=== PATIENT | female | born 1985 | race Caucasian/White ===

== ENCOUNTER 2018-06-11 13:51 | Emergency (ER) | payer MEDICAID ==
[~2018-06-11] VITALS: Ht 157.5 cm; Wt 64.0 kg
[2018-06-11] MEDS ORDERED: SODIUM CHLORIDE 0.9% 1,000 ML IV ONE (14:27)
[2018-06-11] MEDS ORDERED: ONDANSETRON HCL 4MG/2ML VIAL IV STA (14:27)
[2018-06-11] MEDS ORDERED: LORAZEPAM 0.5MG TABLET PO ONE (14:30)
[2018-06-11 15:04] LABS: CLARITY URINE CLEAR (CLEAR); COLOR URINE YELLOW (YELLOW); KETONES URINE NEGATIVE (NEGATIVE); LEUKOCYTE ESTERASE URINE NEGATIVE (NEGATIVE); NITRITE URINE NEGATIVE (NEGATIVE); OCCULT BLOOD URINE TRACE (NEGATIVE); PH URINE 8.5 (4.5-8.0); PROTEIN URINE TRACE (NEGATIVE); SPECIFIC GRAVITY URINE 1.026 (1.005-1.030); UROBILINOGEN URINE 0.2 E.U./dL (0.2-1.0)
[2018-06-11 15:09] LABS: CHLORIDE 109 mEq/L (98-107)
[2018-06-11 15:17] LABS: HEMATOCRIT. 35.1 % (36.0-48.0); HEMOGLOBIN. 11.9 g/dL (12.0-16.0); MEAN CORPUSCULAR HEMOGLOBIN 29.3 pg (28.0-32.0); MEAN CORPUSCULAR VOLUME 86.5 fL (81.0-99.0); MEAN PLATELET VOLUME 9.7 fl (7.4-10.4); PLATELET 206 x1000/uL (130-400); RED BLOOD CELL COUNT 4.06 mill/uL (4.2-5.4); RED CELL DISTRIBUTION WIDTH 13.6 % (11.6-14.6)
[2018-06-11 16:36] LABS: PLATELET ESTIMATE NORMAL
[2018-06-11 18:05] VITALS: BP 104/62
== END 2018-06-11 18:06 | disposition home or self-care (01) ==
LOC: ER 13:51
DX: R55 Syncope and collapse (principal); Z98.890 Other specified postprocedural states
CPT/HCPCS: 36415; 80053; 81003; 81025; 85025; 93005; 96361; 96374; 99285; J2405; J7030; Z7610

== ENCOUNTER 2022-06-30 14:56 | Emergency (ER) | payer MEDICAID, OTHER ==
[~2022-06-30] VITALS: Ht 157.5 cm; Wt 59.0 kg
[2022-06-30 15:04] VITALS: BP 113/69
[2022-06-30] MEDS ORDERED: MAGNESIUM/ALUMINUM HYDROXIDE/SIMETHICONE 30ML UDC PO STA (16:46)
[2022-06-30] MEDS ORDERED: ONDANSETRON HCL 4MG/2ML INJ IV STA (16:46)
[2022-06-30] MEDS ORDERED: VISCOUS LIDOCAINE 2% 15 ML UDC PO STA (16:46)
[2022-06-30] MEDS ORDERED: SODIUM CHLORIDE 0.9% 1,000 ML IV ONE (17:00)
[2022-06-30 17:14] LABS: BASOPHILS % 0.2 % (0.0-2.0); EOSINOPHILS % 2.6 % (0.0-5.0); HEMOGLOBIN. 11.5 g/dL (12.0-16.0); LYMPHOCYTES % 7.3 % (20.0-50.0); MEAN CORPUSCULAR HEMOGLOBIN 26.6 pg (28.0-32.0); MEAN CORPUSCULAR VOLUME 81.2 fL (81.0-99.0); MEAN PLATELET VOLUME 8.8 fl (7.4-10.4); MONOCYTES % 3.3 % (2.0-8.0); NEUTROPHILS % 86.6 % (40.0-76.0); PLATELET 281 x1000/uL (130-400); RED BLOOD CELL COUNT 4.31 mill/uL (4.2-5.4); RED CELL DISTRIBUTION WIDTH 15.2 % (11.6-14.6)
[2022-06-30 17:29] LABS: CHLORIDE 105 mEq/L (98-107)
[2022-06-30 17:35] LABS: HCG SCREEN NEGATIVE
[2022-06-30 17:38] LABS: ETHANOL BLOOD < 10 mg/dL
[2022-06-30 17:47] LABS: INR 1.1; PROTHROMBIN TIME 11.5 sec (9.6-11.0)
[2022-06-30 18:14] LABS: CLARITY URINE CLEAR (CLEAR); COLOR URINE DARK YELLOW (YELLOW); KETONES URINE 3+ (NEGATIVE); LEUKOCYTE ESTERASE URINE NEGATIVE (NEGATIVE); NITRITE URINE NEGATIVE (NEGATIVE); OCCULT BLOOD URINE NEGATIVE (NEGATIVE); PH URINE 6.5 (4.5-8.0); PROTEIN URINE NEGATIVE (NEGATIVE); SPECIFIC GRAVITY URINE 1.026 (1.005-1.030)
[2022-06-30 18:25] LABS: *AMPHETAMINES SCREEN URINE NEGATIVE (NEGATIVE); *BARBITURATES SCREEN URINE NEGATIVE (NEGATIVE); *BENZODIAZEPINES SCREEN URINE NEGATIVE (NEGATIVE); *COCAINE SCREEN URINE NEGATIVE (NEGATIVE); CANNABINOID URINE SCREEN NEGATIVE (NEGATIVE); METHADONE URINE SCREEN NEGATIVE (NEGATIVE); OPIATES URINE SCREEN NEGATIVE (NEGATIVE); PHENCYCLIDINE URINE SCREEN NEGATIVE (NEGATIVE)
[2022-06-30] MEDS ORDERED: PROT40 MT (19:04)
[2022-06-30] MEDS ORDERED: ACET-2708 MT (19:04)
[2022-06-30] MEDS ORDERED: ONDA4TAB50 MT (19:04)
== END 2022-06-30 19:39 | disposition home or self-care (01) ==
LOC: ER 14:56
DX: R19.7 Diarrhea, unspecified (principal); R10.32 Left lower quadrant pain; E86.0 Dehydration; R11.2 Nausea with vomiting, unspecified; D72.829 Elevated white blood cell count, unspecified
CPT/HCPCS: 36415; 76700; 80053; 80305; 80320; 81003; 83690; 84703; 85025; 85610; 93005; 96361; 96374; 99285; J2405; J7030; G0480

== ENCOUNTER 2023-07-29 18:57 | Emergency (ER) | payer MEDICAID, OTHER ==
[~2023-07-29] VITALS: Ht 154.9 cm; Wt 66.0 kg
[~2023-07-29 18:57] MED LIST: ACET-2708 MT; ONDA4TAB50 MT; PROT40 MT
[2023-07-29 19:24] LABS: BASOPHILS % 0.4 % (0.0-2.0); EOSINOPHILS % 13.4 % (0.0-5.0); HEMATOCRIT. 34.1 % (36.0-48.0); HEMOGLOBIN. 11.3 g/dL (12.0-16.0); LYMPHOCYTES % 13.5 % (20.0-50.0); MEAN CORPUSCULAR HGB CONC 33.1 g/dL (31.0-37.0); MEAN CORPUSCULAR VOLUME 81.6 fL (81.0-99.0); MONOCYTES % 4.5 % (2.0-8.0); NEUTROPHILS % 68.2 % (40.0-76.0); PLATELET 247 x1000/uL (130-400); RED BLOOD CELL COUNT 4.18 mill/uL (4.2-5.4); RED CELL DISTRIBUTION WIDTH 14.6 % (11.6-14.6); WHITE BLOOD COUNT 11.8 x1000/uL (4.5-11.0)
[2023-07-29 19:34] VITALS: O2SAT 98
[2023-07-29 19:35] LABS: CHLORIDE 108 mEq/L (98-107); INDEX HEMOLYSI 1 (1-3); INDEX ICTERIC 1 (1-4); INDEX LIPEMIC 1 (1-3); POTASSIUM 3.5 mEq/L (3.5-5.1); SODIUM 135 mEq/L (136-145)
[2023-07-29 19:42] LABS: ALANINE AMINOTRANSFERASE 15 IU/L (13-61); ALBUMIN 3.9 g/dL (3.4-5.0); ASPARTATE AMINOTRANSFERASE 9 IU/L (15-37); BILIRUBIN TOTAL 0.3 mg/dL (0.1-1.0); CALCIUM 8.9 mg/dL (8.5-10.1); CARBON DIOXIDE 26 mEq/L (21-32); CREATININE 0.5 mg/dL (0.6-1.3); GLUCOSE 124 mg/dL (70-105); PROTEIN TOTAL 8.3 g/dL (6.0-8.3); UREA NITROGEN BLOOD 9 mg/dL (7-21)
[2023-07-29] MEDS ORDERED: ONDANSETRON 4MG ODT PO NR (20:44)
[2023-07-29 20:46] LABS: CLARITY URINE CLOUDY (CLEAR); COLOR URINE YELLOW (YELLOW); GLUCOSE URINE NEGATIVE (NEGATIVE); KETONES URINE TRACE (NEGATIVE); LEUKOCYTE ESTERASE URINE NEGATIVE (NEGATIVE); NITRITE URINE NEGATIVE (NEGATIVE); OCCULT BLOOD URINE 1+ (NEGATIVE); PH URINE 6.5 (4.5-8.0); PROTEIN URINE NEGATIVE (NEGATIVE); SPECIFIC GRAVITY URINE 1.027 (1.005-1.030)
[2023-07-29 20:49] LABS: WBC URINE 0-2 /hpf (0-2); YEAST URINE NONE SEEN
[2023-07-29] MEDS ORDERED: KETOROLAC 60MG/2ML VIAL IM ONE (21:00)
[2023-07-29 21:05] LABS: BACTERIA URINE 2+; SQUAMOUS EPITHELIAL CELL URINE FEW /lpf (RARE/1+)
[2023-07-29 21:06] LABS: CALCIUM OXALATE CRYSTALS URINE 2+ /lpf
[2023-07-29 21:13] VITALS: BP 118/74
[2023-07-29 21:45] LABS: HCG SCREEN NEGATIVE
[2023-07-29 22:07] VITALS: PULSE 86; RESP 12; TEMP 97.9
== END 2023-07-29 22:00 | disposition home or self-care (01) ==
LOC: ER 18:57
DX: K29.70 Gastritis, unspecified, without bleeding (principal)
CPT/HCPCS: 80053; 81003; 81025; 84703; 83690; 85025; 36415; 74176; 96372; 99285; Q0162; J1885; Z7610

== ENCOUNTER 2024-03-13 21:31 | Emergency (ER) | payer MEDICAID ==
[~2024-03-13] VITALS: Ht 154.9 cm; Wt 68.0 kg
[2024-03-14] MEDS: PREDNISONE 20MG TABLET PO ONE (00:01)
[2024-03-14 00:13] VITALS: PULSE 78; RESP 20; O2SAT 99
[2024-03-14] MEDS: ALBUTEROL (0.083%) 2.5MG/3ML NEB HHN ONE ×2 (00:13→02:33)
[2024-03-14 00:20] LABS: BASOPHILS % 0.4 % (0.0-2.0); EOSINOPHILS % 11.5 % (0.0-5.0); HEMATOCRIT. 36.7 % (36.0-48.0); HEMOGLOBIN. 12.3 g/dL (12.0-16.0); LYMPHOCYTES % 19.9 % (20.0-50.0); MEAN CORPUSCULAR HEMOGLOBIN 28.8 pg (28.0-32.0); MEAN CORPUSCULAR HGB CONC 33.6 g/dL (31.0-37.0); MEAN CORPUSCULAR VOLUME 85.7 fL (81.0-99.0); MEAN PLATELET VOLUME 8.8 fl (7.4-10.4); MONOCYTES % 5.8 % (2.0-8.0); NEUTROPHILS % 62.4 % (40.0-76.0); PLATELET 261 x1000/uL (130-400); RED BLOOD CELL COUNT 4.29 mill/uL (4.2-5.4); RED CELL DISTRIBUTION WIDTH 14.1 % (11.6-14.6); WHITE BLOOD COUNT 10.3 x1000/uL (4.5-11.0)
[2024-03-14 00:32] LABS: ALANINE AMINOTRANSFERASE 28 IU/L (10-49); ALBUMIN 4.9 g/dL (3.2-4.8); ASPARTATE AMINOTRANSFERASE 28 IU/L (<34); BILIRUBIN TOTAL 0.3 mg/dL (0.1-1.0); CALCIUM 8.8 mg/dL (8.7-10.4); CARBON DIOXIDE 25 mEq/L (21-32); CHLORIDE 107 mEq/L (98-107); CREATININE 0.7 mg/dL (0.6-1.0); GLUCOSE 90 mg/dL (70-105); POTASSIUM 3.5 mEq/L (3.5-5.1); PROTEIN TOTAL 8.3 g/dL (6.0-8.3); SODIUM 138 mEq/L (136-145); UREA NITROGEN BLOOD 7 mg/dL (9-23)
[2024-03-14 00:38] LABS: TROPONIN I HIGH SENSITIVITY < 4 ng/L (3.0-34)
[2024-03-14] MEDS ORDERED: ALBU18HF2 IH (01:20)
[2024-03-14] MEDS ORDERED: P50 MT (01:20)
[2024-03-14 02:33] VITALS: PULSE 93; RESP 20; O2SAT 98
[2024-03-14 02:52] VITALS: BP 113/61; PULSE 97; RESP 16; TEMP 98.6
== END 2024-03-14 02:58 | disposition home or self-care (01) ==
LOC: ER 21:31
DX: R06.02 Shortness of breath (principal); R06.2 Wheezing; R07.9 Chest pain, unspecified
CPT/HCPCS: 80053; 81025; 83880; 85025; 85379; 84484; 36415; 71045; 93005; 99285; 94640; J7512; Z7610 ×3

== ENCOUNTER 2025-03-11 08:36 | Emergency (ER) | payer MEDICAID, OTHER ==
[~2025-03-11] VITALS: Ht 154.9 cm; Wt 77.0 kg
[~2025-03-11 08:36] MED LIST changes: +ALBU18HF2 IH; +P50 MT
[2025-03-11 08:41] VITALS: O2SAT 95
[2025-03-11] MEDS ORDERED: LIDOCAINE 5% PATCH TOP SCH (09:15)
[2025-03-11] MEDS: KETOROLAC 15MG/ML VIAL IM ONE (09:32)
[2025-03-11] MEDS: CYCLOBENZAPRINE 10MG TABLET PO ONE (09:32)
[2025-03-11] MEDS: LIDOCAINE 5% PATCH TOP SCH (09:33)
[2025-03-11] MEDS: HYDROCODONE/ACETAMINOPHEN 10/325MG TABLET PO ONE (11:29)
[2025-03-11] MEDS ORDERED: LIDO700A30 TP (11:49)
[2025-03-11 12:11] VITALS: BP 14/70; PULSE 103; RESP 16; TEMP 36.8; O2SAT 95
== END 2025-03-11 12:12 | disposition home or self-care (01) ==
LOC: ER 08:36
DX: M51.27 Other intervertebral disc displacement, lumbosacral region (principal); J45.909 Unspecified asthma, uncomplicated; Z79.899 Other long term (current) drug therapy
CPT/HCPCS: 99284; 81025; 96372; J1885